=== PATIENT | male | born 2000 | race Hispanic/Latino ===

== ENCOUNTER 2021-02-21 21:05 | Day surgery (SDC) | payer OTHER ==
[~2021-02-21] VITALS: Ht 177.8 cm; Wt 75.5 kg
[2021-02-21 23:04] LABS: BASO % 0.4 % (0.0-1.0); EOS # 0.1 10^3/uL (0.0-0.5); EOS % 1.2 % (0.0-3.0); HEMATOCRIT 40.6 % (42.0-52.0); HEMOGLOBIN 13.7 g/dl (13.5-17.5); LYMPH # 1.7 10^3/uL (1.5-5.0); LYMPH % 15.8 % (24.0-44.0); MEAN CORPUSCULAR HEMOGLOBIN 29.8 pg (27.0-33.0); MEAN CORPUSCULAR HGB CONC 33.7 g/dl (32.0-36.5); MEAN CORPUSCULAR VOLUME 88.3 fl (80.0-96.0); MONO # 0.8 10^3/uL (0.0-0.8); MONO % 7.2 % (2.0-8.0); NEUTROPHILS # 8.1 10^3/uL (1.5-8.5); NEUTROPHILS % 75.2 % (36.0-66.0); PLATELET COUNT, AUTOMATED 234 10^3/uL (150-450); WHITE BLOOD COUNT 10.8 10^3/uL (4.0-10.0)
[2021-02-21 23:50] LABS: ALBUMIN 4.4 GM/DL (3.2-5.2); ALT/SGPT 33 U/L (12-78); BILIRUBIN,DIRECT 0.1 MG/DL (0.0-0.2); BILIRUBIN,TOTAL 0.5 MG/DL (0.2-1.0); BLOOD UREA NITROGEN 16 MG/DL (7-18); CARBON DIOXIDE LEVEL 30 MEQ/L (21-32); CHLORIDE LEVEL 105 MEQ/L (98-107); CREATININE FOR GFR 1.02 MG/DL (0.70-1.30); GLOMERULAR FILTRATION RATE > 60.0 (>60); GLUCOSE, FASTING 94 MG/DL (70-100); LIPASE 97 U/L (73-393); POTASSIUM SERUM 4.1 MEQ/L (3.5-5.1); SODIUM LEVEL 139 MEQ/L (136-145); TOTAL PROTEIN 7.7 GM/DL (6.4-8.2)
[2021-02-22] MEDS ORDERED: KETOROLAC 30 MG/ML 1ML VIAL IV ONE (05:55)
[2021-02-22] MEDS: GASTROGRAFIN SOLUTION 30ML PO SCH ×2 (06:19→06:49)
[2021-02-22] MEDS ORDERED: ERTAPENEM SODIUM 1 GM in NS MINI-BAG PLUS 50 ML IV ONE (09:50)
--- NOTE | 2021-02-22 09:58 | REPVR ---
PROCEDURE INFORMATION: Exam: CT Abdomen And Pelvis With Contrast Exam date and time: 02/22/2021 7:38 AM Age: 20 years old Clinical indication: Abdominal pain; Localized; Right lower quadrant (rlq); Additional info: Rlq abd pain TECHNIQUE: Imaging protocol: Computed tomography of the abdomen and pelvis with contrast. Radiation optimization: All CT scans at this facility use at least one of these dose optimization techniques: automated exposure control; mA and/or kV adjustment per patient size (includes targeted exams where dose is matched to clinical indication); or iterative reconstruction. Contrast material: ISOVUE 370; Contrast volume: 100 ml; Contrast route: INTRAVENOUS (IV); COMPARISON: No relevant prior studies available. FINDINGS: Lungs: The visualized lung bases are essentially clear. Liver: The liver is mildly fatty in density. It appears otherwise unremarkable. Gallbladder and bile ducts: No gallstones are evident, but ultrasound would be more sensitive. No gross biliary ductal dilatation. Pancreas: Normal. No ductal dilation. Spleen: Normal. No splenomegaly. Adrenal glands: Normal. No mass. Kidneys and ureters: Normal. No hydronephrosis. Stomach and bowel: The small bowel is not obstructed. The large bowel is grossly unremarkable in appearance. Appendix: The appendix is predominantly normal in caliber, and contains gas and contrast, aside from as distal tip, where it measures up to 9 mm, contains fluid and appears mildly thick-walled. There is also mild focal haziness of the surrounding fat, suggesting distal appendicitis. No discrete associated abscess is identified. Intraperitoneal space: No free air or significant free fluid. Vasculature: Unremarkable. No abdominal aortic aneurysm. Lymph nodes: Unremarkable. No enlarged lymph nodes. Urinary bladder: Unremarkable. Reproductive: Unremarkable as visualized. Bones/joints: Unremarkable. No acute fracture. Soft tissues: Unremarkable. IMPRESSION: 1. Findings suggesting distal appendicitis with mild inflammatory changes. 2. Mildly fatty liver. Electronically signed by: Antoni Mac On 02/22/2021 09:58:14 AM
[2021-02-22] MEDS ORDERED: NS 1,000 ML IV SCH (10:20)
[2021-02-22 11:25] LABS: RSV AMPLIFICATION NEGATIVE (NEGATIVE)
--- NOTE | 2021-02-22 12:27 | HPEPDOC ---
General Surgery H&P Date of Admission Feb 22, 2021 Attending Physician: ESTEBAN CASTELLANOS MD History and Physical General surgery. Dr. 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 He also had diarrhea. He was seen by PCP who recommended to take Pepto-Bismol. He states he tried taking the Pepto-Bismol and went home to rest but when he got up the pain was more severe. He states pain was in the right lower quadrant, he continued to have some diarrhea. Pain continued to worsen throughout the day so he came to the emergency room for evaluation last evening. He denies nausea, vomiting, fevers, chills. Imaging done in the emergency room indicated appendicitis, surgery was consulted. ALLERGIES: Please see below. HOME MEDICATIONS: Please see below. PAST MEDICAL HISTORY: Denies. Does not take any medications as outpatient PAST SURGICAL HISTORY: Denies any prior surgery PERSONAL/SOCIAL HISTORY: Denies smoking, alcohol use, or recreational drug use. REVIEW OF SYSTEMS: As noted in HPI otherwise 10 point review of systems unremarkable. PHYSICAL EXAMINATION: VITAL SIGNS: Please see below. GENERAL APPEARANCE: Patient seen in ER on stretcher, appears comfortable, reports pain with movement. Awake, alert, oriented. HEENT: Normocephalic, atraumatic. [place] palpebral conjunctivae. Anicteric sclera e. Lips moist. CHEST: No chest wall abnormalities. Normal respiratory motion/effort. NECK:Supple. No thyromegaly. No lymphadenopathies. LUNGS: Lung sounds are clear to auscultation bilaterally. No wheezing appreciated. HEART: Heart rate and rhythm are regular with no murmurs. ABDOMEN:Abdomen is flat, soft, nondistended. Right lower quadrant tenderness with palpation, grimacing noted with palpation right lower quadrant. Slight guarding noted. SKIN: Warm, moist. EXTREMITIES: No edema identified. LABORATORY DATA: WBC 10.8, hemoglobin 13.7, platelets 234 IMAGING: CT abdomen/pelvis IMPRESSION: 1. Findings suggesting distal appendicitis with mild inflammatory changes. 2. Mildly fatty liver. Electronically signed by: Nga Larsen On 02/22/2021 09:58:14 AM DD: NGA LARSEN MD 02/22/21 0738 IMPRESSION AND PLAN: Appendicitis. The patient is reviewed as per Dr. Castellanos. Continue n.p.o. IVF 150 mL/h Tentative plan for laparoscopic appendectomy later today as per Dr. Castellanos. Vital Signs Vital Signs Date Time Temp Pulse Resp B/P (MAP) Pulse Ox O2 Delivery O2 Flow Rate FiO2 02/22/21 11:22 99.2 60 16 122/70 (87) 98 Room Air Laboratory Data Labs 24H Laboratory Tests 2 02/21/21 22:49: Immature Granulocyte % (Auto) 0.2, Neutrophils (%) (Auto) 75.2H, Lymphocytes (%) (Auto) 15.8L, Monocytes (%) (Auto) 7.2, Eosinophils (%) (Auto) 1.2, Basophils (%) (Auto) 0.4, Neutrophils # (Auto) 8.1, Lymphocytes # (Auto) 1.7, Monocytes # (Auto) 0.8, Eosinophils # (Auto) 0.1, Basophils # (Auto) 0.0, Nucleated Red Blood Cells % (auto) 0.0, Anion Gap 4L, Glomerular Filtration Rate > 60.0, Calcium Level 9.0, Total Bilirubin 0.5, Direct Bilirubin 0.1, Aspartate Amino Transf (AST/SGOT) 17, Alanine Aminotransferase (ALT/SGPT) 33, Alkaline Phosphatase 81, Total Protein 7.7, Albumin 4.4, Albumin/Globulin Ratio 1.3, Lipase 97 02/22/21 00:48: Urine Color STRAW, Urine Appearance CLEAR, Urine pH 7.0, Urine Specific [place] 1.009, Urine Protein NEGATIVE, Urine Glucose (UA) NEGATIVE, Urine Ketones NEGATIVE, Urine Blood NEGATIVE, Urine Nitrite NEGATIVE, Urine Bilirubin NEGATIVE, Urine Urobilinogen 0.2, Urine Leukocyte Esterase NEGATIVE, Urine WBC (Auto) 0, Urine RBC (Auto) 0, Urine Hyaline Casts (Auto) 0, Urine Bacteria (Auto) NEGATIVE, Urine Squamous Epithelial Cells 0, Urine Sperm (Auto) 02/22/21 10:32: Coronavirus (COVID-19)(PCR) NEGATIVE, Influenza Type A (RT-PCR) NEGATIVE, Influenza Type B (RT-PCR) NEGATIVE, Respiratory Syncytial Virus (PCR) NEGATIVE CBC/BMP Laboratory Tests 02/21/21 22:49 Home Medications No Active Prescriptions or Reported Meds Allergies Coded Allergies: No Known Allergies (Unverified , 02/21/21) A-FIB/CHADSVASC A-FIB History Current/History of A-Fib/PAF?: No Attending Note Attending Note Patient is seen in the preoperative holding area. He did have evidence of I reviewed the history. This is consistent with acute appendicitis. He did not have any leukocytosis on laboratories. Inflammation at the tip of the appendix. Seems to be uncomplicated on CT with no perforation or any uncontained fluid collection. His symptoms are about 2 days in duration. He does not look ill, has some mild to moderate tenderness on palpation over the right lower quadrant area with minimal guarding. We will proceed with laparoscopic appendectomy. I discussed with the patient the details of the proposed procedure, the benefits of performing the procedure, the most common risks on doing the procedure. This may include risks for bleeding, infection or subsequent abscess formation which normally correlates with the degree of inflammation/infection/perforation from the appendix. He received a dose of Invanz 1 g IV during his stay in the emergency room. This should adequately cover him for the procedure and if this turns out to be an uncomplicated early appendicitis, may not need any further dosing.. I have given him a chance to ask questions, voice out concerns. Patient has agreed to proceed Aurora Reich Feb 22, 2021 12:26 ESTEBAN CASTELLANOS MD Feb 22, 2021 16:13
[2021-02-22] MEDS ORDERED: ONDANSETRON 4MG/2ML VIAL IV PRN ×2 (15:35→18:10)
[2021-02-22] MEDS ORDERED: ACETAMINOPHEN TAB 650MG DOSE (2X325MG) PO PRN (15:35)
[2021-02-22] MEDS ORDERED: LIDOCAINE 1% SDV 30ML VIAL As Ordered ONE (15:55)
[2021-02-22] MEDS ORDERED: BUPIVACAINE HCL 0.25% 30ML VIAL As Ordered ONE (15:55)
[2021-02-22] MEDS ORDERED: MIDAZOLAM INJ 2MG/2ML VIAL (J2250 PER 1MG) As Ordered ONE (17:00)
[2021-02-22] MEDS ORDERED: ONDANSETRON 4MG/2ML VIAL As Ordered ONE (17:00)
[2021-02-22] MEDS ORDERED: propofoL 200 MG/20 ML VIAL As Ordered ONE (17:00)
[2021-02-22] MEDS ORDERED: ROCURONIUM BROMIDE 50 MG/5 ML VIAL As Ordered ONE (17:00)
[2021-02-22] MEDS ORDERED: dexameTHASONE 4 MG/ML 1ML VIAL (J1100 PER 1MG) As Ordered ONE (17:00)
[2021-02-22] MEDS ORDERED: fentaNYL 250 MCG/5 ML INJECTION (J3010) As Ordered ONE (17:00)
[2021-02-22] MEDS ORDERED: LIDOCAINE 2% 100MG/5ML SDV (FOR ANES.) As Ordered ONE (17:00)
[2021-02-22] MEDS ORDERED: SUGAMMADEX SODIUM 500 MG/5 ML VIAL (BRIDION) As Ordered ONE (17:00)
[2021-02-22] MEDS ORDERED: ACETAMINOPHEN 1000MG 100ML IV BTL (OFIRMEV) (J0131 PER 10MG) As Ordered ONE (17:01)
[2021-02-22] MEDS ORDERED: KETOROLAC 60MG 2ML VIAL As Ordered ONE (17:16)
[2021-02-22] MEDS ORDERED: KETOROLAC 30 MG/ML 1ML VIAL IV PRN ×2 (17:55→23:30)
[2021-02-22] MEDS ORDERED: PERCOCET 5MG/325MG TAB PO PRN ×2 (17:55→18:10)
[2021-02-22] MEDS ORDERED: METOCLOPRAMIDE INJ 10MG/2ML VIAL (J2765 PER 1) IV PRN (18:10)
[2021-02-22] MEDS ORDERED: fentaNYL 100 MCG/2 ML INJECTION (J3010) IV PRN (18:10)
[2021-02-22] MEDS ORDERED: LR 1,000 ML IV SCH (18:10)
[2021-02-22 19:00] VITALS: BP 119/76
[2021-02-22] MEDS: AMPICILLIN SOD/SULBACTAM SOD 3 GM in D5W MINI-BAG PLUS 100 ML IV SCH ×2 (19:05→23:02)
[2021-02-22 19:30] VITALS: BP 119/76
[2021-02-22 20:30] VITALS: BP 114/72
[2021-02-22 21:30] VITALS: BP 118/70
--- NOTE | 2021-02-22 21:30 | ROOPDOC ---
[facility] Report Of Operation Report of Operation DATE OF PROCEDURE: 02/22/21 PREPROCEDURE DIAGNOSES: Acute appendicitis. POSTPROCEDURE DIAGNOSES: Acute nonperforated appendicitis. PROCEDURE PERFORMED: Laparoscopic appendectomy. SURGEON: Eyad Castellanos MD ANESTHESIA: General endotracheal anesthesia. ESTIMATED BLOOD LOSS: Approximately 20 mL. COMPLICATIONS: None. REMARKS: Healthy 21 male with 2-day history of right lower quadrant abdominal pain and nausea, anorexia found to have evidence of appendicitis at the tip on CT. He has no leukocytosis, no severe inflammatory response systemic. FINDINGS: Fluid-filled distended appendix mild inflammation at the tip, normal mesoappendix. No perforation. No free fluid SPECIMENS REMOVED: Appendix. DESCRIPTION OF PROCEDURE: Patient has been Invanz 1 g IV perioperatively in the emergency room.Patient was brought to the operating room, placed supine on the table. Sequential compression device placed for DVT prophylaxis. General endotracheal anesthesia started. The abdomen prepped and draped in usual sterile fashion. We paused for a surgical timeout using both pre-incision safety checklist to verify correct patient, procedure site and additional clinical information prior to beginning the procedure Entry into the abdomen done through an incision at the top of the umbilicus. Veress needle inserted on a controlled fashion. Intra-abdominal placement confirmed with saline drop technique. CO2 insufflation started to a pressure of 15 mmHg. Using the same incision a 5 mm port was placed under direct vision of laparoscope. As I was going and I noticed air within the peritoneum, falciform ligament and umbilical ligaments. Insertion site was inspected for injury and none was found. He was placed on a Trendelenburg position the right side tilted to allow for better visualization of the appendix. Two 5 mm working ports were placed at the suprapubic area and left lower quadrant area under direct vision, an 8 mm port exchanged at the umbilical camera port site. Operative findings: The appendix is normal at the base, becoming distended mid appendix and mildly thickened and inflamed, with vascular congestion at the tip, no perforation. Mesoappendix not contracted, severely thickened. No abscess, infected fluid. The appendix was grasped to pull the base of the appendix into view. The mesoappendix was divided using Harmonic scalpel down to the base. Two PDS Endoloops were placed to ligate the appendix at its base then divided with a Harmonic Scalpel the stump cauterized. Stump appears healthy. Appendix was then delivered into an Endo Catch bag through the 8 mm umbilical port site. . After re-insufflation the surgical site was inspected for hemostasis, the visualized fluid collections irrigated and suctioned off until clear return. Surrounding areas of the abdomen and inspected for fluid collections or signs of injury. The abdomen was deflated. All ports removed. The umbilical fascial defect repaired with 0 Vicryl in a mattress fashion. All skin incisions closed with 4-0 Monocryl in a subcuticular fashion. Steri-Strips and gauze dressing used for wound coverage. Patient was promptly awake and extubated and brought to recovery room stable. All counts of sponges and instruments verified to be correct. EYAD CASTELLANOS MD Feb 22, 2021 21:30
[2021-02-22 22:30] VITALS: BP 120/71
[2021-02-22 23:30] VITALS: BP 121/68
[2021-02-23 02:00] VITALS: BP 118/68
[2021-02-23] MEDS: AMPICILLIN SOD/SULBACTAM SOD 3 GM in D5W MINI-BAG PLUS 100 ML IV SCH (05:44)
[2021-02-23 06:00] VITALS: BP 129/83
[2021-02-23 06:36] LABS: BASO % 0.3 % (0.0-1.0); EOS % 0.1 % (0.0-3.0); HEMATOCRIT 41.4 % (42.0-52.0); HEMOGLOBIN 13.7 g/dl (13.5-17.5); LYMPH % 13.3 % (24.0-44.0); MEAN CORPUSCULAR HEMOGLOBIN 28.8 pg (27.0-33.0); MEAN CORPUSCULAR HGB CONC 33.1 g/dl (32.0-36.5); MEAN CORPUSCULAR VOLUME 87.2 fl (80.0-96.0); MONO # 0.4 10^3/uL (0.0-0.8); MONO % 5.7 % (2.0-8.0); NEUTROPHILS % 80.2 % (36.0-66.0); PLATELET COUNT, AUTOMATED 241 10^3/uL (150-450); RED BLOOD COUNT 4.75 10^6/uL (4.30-6.10); WHITE BLOOD COUNT 7.5 10^3/uL (4.0-10.0)
[2021-02-23 06:57] LABS: BLOOD UREA NITROGEN 11 MG/DL (7-18); CALCIUM LEVEL 9.2 MG/DL (8.5-10.1); CARBON DIOXIDE LEVEL 28 MEQ/L (21-32); CHLORIDE LEVEL 103 MEQ/L (98-107); CREATININE FOR GFR 0.97 MG/DL (0.70-1.30); GLOMERULAR FILTRATION RATE > 60.0 (>60); GLUCOSE, FASTING 99 MG/DL (70-100); SODIUM LEVEL 137 MEQ/L (136-145)
--- NOTE | 2021-02-23 13:21 | IPNPDOC ---
Text Note Date of Service The patient was seen on 02/23/21. NOTE General surgery. Dr. Castellanos The patient is a 20-year-old male admitted with acute appendicitis status post laparoscopic appendectomy 02/22/[address] Castellanos. The patient is sitting up in bed. States pain is controlled. Denies nausea or vomiting. Has been out of bed. Eating and drinking. Feels ready for discharge. Afebrile. VSS. Awake and alert, resting in bed, no acute distress S1-S2 regular rate rhythm Lungs clear to auscultation Abdomen with surgical incisions clean and dry, incision at the umbilicus with small amount of dried blood, dry dressing is replaced Extremities with no edema Assessment/plan Status post laparoscopic appendectomy 02/22/[address] Castellanos. Plan for discharge this morning. No additional antibiotics necessary. The patient can alternate Tylenol or ibuprofen as needed. 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 every 6 hours as needed. He will pick this up at our office Follow-up with Dr. Castellanos in 2 weeks. The patient is aware to call back to the office with questions, concerns, fevers, chills, increasing pain or drainage from incisions. VS,Stuartbone, I+O VS, Fishbone, I+O Laboratory Tests 02/23/21 05:53 Vital Signs Date Time Temp Pulse Resp B/P (MAP) Pulse Ox O2 Delivery O2 Flow Rate FiO2 02/23/21 06:22 17 Room Air 02/23/21 06:00 97.7 66 129/83 (98) 97 I&O- Last 24 Hours up to 6 AM 02/23/21 06:00 Intake Total 1900 ml Output Total 2600 ml Balance -700 ml Aurora Reich Feb 23, 2021 13:21
== END 2021-02-23 10:39 | disposition home or self-care (01) ==
LOC: M ED 21:05 → M SDC 21:06 → M MSPAV 02-22 18:55 → M SDC 02-22 18:55 → M MSPAV 02-23 10:39 → M SDC 02-23 10:39
PROVIDERS: ATTEND Surgery
DX: K35.80 Unspecified acute appendicitis (principal); K76.0 Fatty (change of) liver, not elsewhere classified
CPT/HCPCS: 36415; 44970; 74177; 80048; 80076; 81001; 83690; 85025; 86140; 87631; 88304; 96365; 96367; 96375; 96376; 99285; J0131; J1100; J1335; J1885; J2250; J2405; J3010; Q9963